=== PATIENT | male | born 1950 | race Caucasian/White ===

== ENCOUNTER 2020-06-30 22:30 | Inpatient (IN) ==
[2020-06-30 23:01] LABS: Hemoglobin 11.4 gm/dL (13.5-18.0); Mean Cell Volume 97.6 fl (78-100); Mean Corpuscular Hemoglobin 30.1 pg (27-31); Mean Corpuscular Hgb Conc 30.8 g/dl (32-36); Mean Platelet Volume 9.8 fl (8-11.3); Neutrophil # 16.5 K/mm3 (1.3-6.0); Neutrophil % 88.2 % (42-75.0); Platelet Count 199 K/mm3 (150-450); Red Blood Count 3.79 M/mm3 (4.7-6.0); White Blood Count 18.7 K/mm3 (4.0-10.5)
[2020-06-30 23:07] LABS: Prothrombin Time (Patient) 12.6 Seconds (9.1-10.7)
[2020-06-30 23:09] LABS: INR 1.29 INR (0.92-1.08); Partial Thrombolplastin Time 29.5 Seconds (24-32)
[2020-06-30 23:13] LABS: Albumin * 2.9 gm/dl (3.4-5.0); Bilirubin, Total 0.6 mg/dL (0.0-1.1); Calcium * 9.4 mg/dL (7.9-10.9); Carbon Dioxide 25.1 mmol/L (24-32.6); Potassium 5.1 mmol/L (3.4-4.6); Total Protein 7.8 gm/dL (6.2-8.2)
[2020-06-30 23:14] LABS: Troponin I 0.035 ng/mL (0.00-0.10)
--- NOTE | 2020-06-30 23:37 | ERNOTE ---
Dyspnea - General Presenting Symptoms: other - low grade fever Time Seen by Provider: 06/30/20 23:11 Source: patient, family - Immun/Allergies/Home Medications Immunizations: IMMUNIZATION HX Immunizations Up to Date Yes History of Influenza Vaccine Yes Hx Pneumococcal Vaccination Yes Allergies/Adverse Reactions: Allergies No Known Allergies Allergy (Verified 07/01/12 13:17) Home Medications: HOME MEDICATIONS Insulin Aspart Prot/Insuln Asp [Novolog Mix 70/30] 15 - 20 units SC TID 07/01/12 [Last Taken Unknown] Insulin Glargine,Hum.rec.anlog [Lantus] 60 unit SQ BID 07/01/12 [Last Taken Unknown] Apixaban [Eliquis] 5 mg PO DAILY 04/26/17 [Last Taken Unknown] Carvedilol [Coreg] 12.5 mg PO BID 04/26/17 [Last Taken Unknown] Furosemide [Lasix] 20 mg PO DAILY 04/26/17 [Last Taken Unknown] Acetaminophen [Tylenol] 650 mg PO PRN 06/30/20 [Last Taken Unknown] Allopurinol [Zyloprim] 300 mg PO DAILY 06/30/20 [Last Taken Unknown] Clopidogrel Bisulfate [Plavix] 75 mg PO DAILY 06/30/20 [Last Taken Unknown] Colchicine 0.6 mg PO PRN PRN 06/30/20 [Last Taken Unknown] Dulaglutide [Trulicity] 1.5 mg SQ Q7D 06/30/20 [Last Taken Unknown] Gabapentin 100 mg PO TID 06/30/20 [Last Taken Unknown] Oxybutynin Chloride [Ditropan] 5 mg PO TID 06/30/20 [Last Taken Unknown] Rosuvastatin Calcium 40 mg PO DAILY 06/30/20 [Last Taken Unknown] Valsartan 80 mg PO DAILY 06/30/20 [Last Taken Unknown] traMADol HCL [Tramadol HCl] 25 mg PO Q6H 06/30/20 [Last Taken Unknown] - History of Present Illness Narrative: history obtained from . pt with mild elevation of blood sugar, low grade temp today so she brought him in to get checked out. pt typically with sob and as pulmonary fibrosis and is on oxygen at home. on arrival pt had low o2 but nwo at 100% on baseline o2 supplementation. per pt does not have much contact aside form the nurse that comes in. he has poor circulation and all of his care is managed at the [facility] Severity: mild Treatment DRESSAGE INSTRUCTOR: none Initiating event: Reports: unknown Review of Systems - Review of Systems Constitutional: Present: See HPI Respiratory: Present: shortness of breath, wheezing Cardiology: Present: edema Gastrointestinal/Abdominal: Absent: nausea, vomiting, abdominal pain Musculoskeletal: Present: See HPI Skin: Present: other - PVD Neurological: Present: other - mild dementia Endocrine: Present: See HPI All Other Systems: All systems neg except as marked Medical History (Last Reviewed 06/30/20 @ 23:35 by Shefali Burrell MD) Atrial fibrillation History of CVA (cerebrovascular accident) Hx of cardiac pacemaker Hx of diabetes mellitus Hx of gout Hx of hiatal hernia Venous insufficiency of both lower extremities Surgical History: Surgical History (Last Reviewed 06/30/20 @ 23:35 by Shefali Burrell MD) Hx of arthroscopy of knee Hx of heart artery stent Hx of hernia repair Family History: Family History (Last Reviewed 06/30/20 @ 23:35 by Shefali Burrell MD) Other No pertinent family history Social History: (Last Reviewed 06/30/20 @ 23:35 by Shefali Burrell MD) Tobacco: Smoking Status: Former smoker how long ago did patient quit smokin Alcohol: alcohol intake: never Substance Use: substance use type: does not use Personal Safety: do you feel safe at home: Yes victim of physical abuse: No victim of emotional abuse: No victim of sexual abuse: No would you like helpful sources: No Physical Exam - Physical Exam General Appearance: Present: alert, mild distress Head Exam: Present: normal inspection, no evidence of injury Eye Exam: Normal inspection: bilateral Ears, Nose, Throat: Present: normal ENT inspection Neck: Present: normal inspection, nontender, supple, full range of motion Respiratory: Present: decreased breath sounds, other - mild accessory muscle use. pt speaking in full sentences per this is normal Cardiovascular/Chest: Present: regular rate, rhythm Gastrointestinal/Abdominal: Present: nontender, soft Extremity Exam: Present: other - pt with medicated bandaging follow by vascular surgery at the [facility], wheeping wounds. Absent: no edema Neurological Exam: Present: alert, oriented, normal mood/affect Skin Exam: Present: other - pvd and wheeping legs again normal per Progress - Date and Time Seen: Date and Time: 07/01/20 03:46 case yael GONZALE[facility] there are no beds available and they will approve admission to nearest facility which is . case yael cavanaugh who accepted the pt and requested rocephin, azithromycin with blood cultures now and cbc cmp in the morning - Vital Signs Vital Signs: Vital Signs 06/30/20 22:36 06/30/20 23:11 Temperature 39.1 C H Pulse Rate 76 72 Respiratory Rate 17 15 Blood Pressure 100/42 149/57 O2 Sat by Pulse Oximetry 100 - EKG EKG #1 EKG: NSR, nonspecific ST T wave changes, other - rate 70 EKG read: Interp. by me - X-Ray X-Ray #1 X-Ray: chest - Progress/Reassessment Chief Complaint: Dyspnea Progress:: Unchanged Progress Note-Subjective: 07/01/20 03:49 per pt is typically sob adn requires oxygen. pt has pulmonary fibrosis also being followed by a surgeon for his legs. i yael GONZALEZ and there are no beds yael cavanaugh. pt with pulm fibrosis midl sob on o2, with luekocytosis and low grade temp. covid neg and pt with bandar. will hydrate, abx blood culture and repeat cb, cmp in the morning Plan - Plan Plan: yael cavanaugh will admit for bandar, leukocytosis and fever. Departure Clinical Impression: BANDAR (acute kidney injury) Fever Qualifiers: Fever type: due to other condition Qualified Code(s): R50.81 - Fever presenting with conditions classified elsewhere Leukocytosis Qualifiers: Leukocytosis type: unspecified Qualified Code(s): D72.829 - Elevated white blood cell count, unspecified - Departure Disposition: Short Term Hospital Inpatient Condition: Good Referrals: Abdulaziz Peña MD [Primary Care Provider] -
[2020-06-30] MEDS ORDERED: NORMAL SALINE 1,000 ML IV ONE (23:50)
[2020-07-01] MEDS ORDERED: ACETAMINOPHEN 1,000 MG/100 ML BTL IV ONE (00:21)
[2020-07-01 01:44] LABS: Urine Bilirubin Negative (NEGATIVE); Urine Blood 25 /ul (NEGATIVE); Urine Ketone Negative (NEGATIVE); Urine Nitrite Negative (NEGATIVE); Urine Protein 100 mg/dL (NEGATIVE); Urine Specific Gravity 1.025 SP.GR. (1.005-1.030); Urine Urobilinogen Normal (NORMAL)
[2020-07-01 01:55] LABS: Urine Appearance Clear (CLEAR); Urine Color Dark Yellow
[2020-07-01 01:56] LABS: Urine Amorphous Sediment Few - 1+ (NONE-FEW); Urine Bacteria TRACE; Urine RBC 0-5 /hpf (0-5); Urine WBC 0-5 /hpf (0-5)
[2020-07-01] MEDS ORDERED: cefTRIAXone SODIUM 2,000 MG/100 ML BAG IV ONE (03:59)
[2020-07-01] MEDS ORDERED: AZITHROMYCIN 250 MG TABLET PO ONE (03:59)
[2020-07-01 06:49] LABS: Hematocrit 33.6 % (42.0-52.0); Hemoglobin 10.6 gm/dL (13.5-18.0); Mean Cell Volume 98.5 fl (78-100); Mean Corpuscular Hemoglobin 31.1 pg (27-31); Mean Corpuscular Hgb Conc 31.5 g/dl (32-36); Mean Platelet Volume 10.3 fl (8-11.3); Platelet Count 184 K/mm3 (150-450); Red Blood Count 3.41 M/mm3 (4.7-6.0); White Blood Count 21.5 K/mm3 (4.0-10.5)
[2020-07-01 06:57] LABS: Total Cells Counted 100
[2020-07-01 07:08] LABS: Albumin * 2.6 gm/dl (3.4-5.0); Anion Gap 17.4 mmol/L (6.8-13.8); BUN/Creatinine Ratio 24.8 (9.0-21.6); Bilirubin, Total 0.5 mg/dL (0.0-1.1); Ca. Corrected For Albumin 9.4 mg/dL (8.4-10.2); Calcium * 8.6 mg/dL (7.9-10.9); Carbon Dioxide 21.1 mmol/L (24-32.6); Potassium 4.5 mmol/L (3.4-4.6); Total Protein 7.4 gm/dL (6.2-8.2)
[2020-07-01 08:17] LABS: Atypical (Reactive) Lymph 1 % (0-2); Band 11 % (0-2.0); Immature Granulocyte 2 (0-1); Lymphocyte 5 % (20-51); Monocyte 6 % (0-9); Neutrophil 75 % (42-75); Neutrophil # 16.1 K/mm3 (1.3-6.0)
[2020-07-01 08:21] LABS: Macrocytosis Trace; Platelet Estimate Normal (NORMAL)
[2020-07-01] MEDS ORDERED: ALLOPURINOL 300 MG TABLET PO SCH (10:45)
[2020-07-01] MEDS ORDERED: NON-FORMULARY 1 DOSE DOSE (Acetaminophen 650 MG) PO SCH (10:45)
[2020-07-01] MEDS ORDERED: APIXABAN 5 MG TABLET PO SCH (10:45)
[2020-07-01] MEDS ORDERED: CARVEDILOL 12.5 MG TABLET PO SCH (10:45)
[2020-07-01] MEDS ORDERED: CLOPIDOGREL BISULFATE 75 MG TABLET PO SCH (10:45)
[2020-07-01] MEDS ORDERED: INSULIN GLARGINE,HUM.REC.ANLOG 100 UNITS/ML VIAL SC SCH (10:45)
[2020-07-01] MEDS: traMADol HCL 50 MG TABLET PO SCH ×2 (11:27→16:14)
[2020-07-01] MEDS ORDERED: INSULIN ASPART PROT/INSULN ASP 100 UNITS/ML VIAL SC SCH (13:00)
--- NOTE | 2020-07-01 14:29 | HP ---
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 In the emergency department he was found to have a temperature of 39.1 C, rest of vitals were stable. Blood work showed leukocytosis of 18.7 with 88% neutrophils and 1.2% immature granulocytes, potassium of 5.1, BUN 74, creatinine 2.39, GFR of 29, lactic acid 2.2, chest x-ray showed mild pulmonary vascular congestion, nonspecific mild interstitial prominence which may represent interstitial pulmonary edema or interstitial infection. He was started on azithromycin and ceftriaxone. Medical History (Last Reviewed 07/01/20 @ 04:59 by Rachana Krueger RN) Atrial fibrillation History of CVA (cerebrovascular accident) Hx of cardiac pacemaker Hx of diabetes mellitus Hx of gout Hx of hiatal hernia Venous insufficiency of both lower extremities Surgical History: Surgical History (Last Reviewed 07/01/20 @ 04:59 by Rachana Krueger RN) Hx of arthroscopy of knee Hx of heart artery stent Hx of hernia repair Family History: Family History (Last Reviewed 07/01/20 @ 04:59 by Rachana Krueger RN) Other No pertinent family history Social History: (Last Reviewed 07/01/20 @ 04:59 by Rachana Krueger RN) Tobacco: Smoking Status: Former smoker how long ago did patient quit smokin Alcohol: alcohol intake: never Substance Use: substance use type: does not use Personal Safety: do you feel safe at home: Yes victim of physical abuse: No victim of emotional abuse: No victim of sexual abuse: No would you like helpful sources: No Review Of Systems (GEN) - Review of Systems Generalized/Overall Review: Present: Fever Respiratory: Present: Cough, Shortness of Breath Cardiac: Absent: Chest Pain Abdominal: Absent: Abdominal Pain Misc: All systems neg except as marked Immunizations: IMMUNIZATION HX Immunizations Up to Date Yes History of Influenza Vaccine Yes Hx Pneumococcal Vaccination Yes Allergies/Adverse Reactions: Allergies Allergy/AdvReac Type Severity Reaction Status Date / Time No Known Allergies Allergy Verified 07/01/12 13:17 Home Medications: HOME MEDICATIONS Insulin Aspart Prot/Insuln Asp [Novolog Mix 70/30] 15 - 20 units SC TID 07/01/12 [Last Taken Unknown] Insulin Glargine,Hum.rec.anlog [Lantus] 60 unit SQ BID 07/01/12 [Last Taken Unknown] Apixaban [Eliquis] 5 mg PO DAILY 04/26/17 [Last Taken Unknown] Carvedilol [Coreg] 12.5 mg PO BID 04/26/17 [Last Taken Unknown] Furosemide [Lasix] 20 mg PO DAILY 04/26/17 [Last Taken Unknown] Acetaminophen [Tylenol] 650 mg PO PRN 06/30/20 [Last Taken Unknown] Allopurinol [Zyloprim] 300 mg PO DAILY 06/30/20 [Last Taken Unknown] Clopidogrel Bisulfate [Plavix] 75 mg PO DAILY 06/30/20 [Last Taken Unknown] Colchicine 0.6 mg PO PRN PRN 06/30/20 [Last Taken Unknown] Dulaglutide [Trulicity] 1.5 mg SQ Q7D 06/30/20 [Last Taken Unknown] Gabapentin 100 mg PO TID 06/30/20 [Last Taken Unknown] Oxybutynin Chloride [Ditropan] 5 mg PO TID 06/30/20 [Last Taken Unknown] Rosuvastatin Calcium 40 mg PO DAILY 06/30/20 [Last Taken Unknown] Valsartan 80 mg PO DAILY 06/30/20 [Last Taken Unknown] traMADol HCL [Tramadol HCl] 25 mg PO Q6H 06/30/20 [Last Taken Unknown] Cholecacip 50 mg PO DAILY 07/01/20 [Last Taken Unknown] Exam - Exam Vital Signs: Vital Signs - Last Taken Temp 37 C 07/01/20 10:00 Pulse 71 07/01/20 13:14 Resp 27 H 07/01/20 13:14 BP 112/51 07/01/20 13:14 Pulse Ox 99 07/01/20 13:14 Constitutional: Present: Alert, Cooperative, Well nourished, Morbidly obese ENT Exam: Present: hearing grossly normal, dry mucous membranes Eye Exam: bilateral eye: normal inspection, EOMI Neck: Present: non-tender, supple. Absent: lymphadenopathy (R), lymphadenopathy (L) Back Exam: Present: no CVA tenderness, no vertebral tenderness Respiratory: Present: no respiratory distress, no accessory muscle use, decreased breath sounds - Throughout all lung campos, No wheezing. Absent: crackles, rhonchi Cardiovascular/Chest: Present: normal peripheral pulses, regular rate, rhythm, no murmur, edema - 2+ pitting edema bilateral lower extremities Peripheral Pulses: dorsalis-pedis (R): 1+, dorsalis-pedis (L): 1+ Abdomen: Present: Normal bowel sounds, soft, nontender, obese Extremity: Present: non-tender, pedal edema - 2+ pitting edema bilateral lower extremities Skin Exam: Present: normal color, warm/dry Neurologic: Present: alert, normal mood/affect Appearance: Present: appropriate appearance Eye contact: Present: cooperative Thoughts: Present: normal mood /affect Diagnostic Studies: Abnormal Lab Results 06/30/20 06/30/20 06/30/20 Range/Units 22:50 22:50 22:50 WBC 18.7 H (4.0-10.5) K/mm3 RBC 3.79 L (4.7-6.0) M/mm3 Hgb 11.4 L (13.5-18.0) gm/dL Hct 37.0 L (42.0-52.0) % MCH (27-31) pg MCHC 30.8 L (32-36) g/dl RDW 16.0 H (11.5-14.0) % Immature Gran % (Auto) 1.20 H (0.001-0.429) % Immature Gran # (Auto) 0.22 H (0.000-0.0310) K/mm3 Neutrophils % 88.2 H (42-75.0) % Band Neuts % (Manual) (0-2.0) % Lymphocytes % 3.1 L (20-51) % Lymphocytes % (Manual) (20-51) % Immature Granulocytes (0-1) Neutrophils # 16.5 H (1.3-6.0) K/mm3 Neutrophils # (Manual) (1.3-6.0) K/mm3 Lymphocytes # 0.57 L (1.5-3.5) k/mm3 Lymphocytes # (Manual) (1.5-3.5) k/mm3 Monocytes # 1.4 H (0.0-1.0) k/mm3 Monocytes # (Manual) (0.0-1.0) k/mm3 PT 12.6 H (9.1-10.7) Seconds INR (Anticoag Therapy) 1.29 H (0.92-1.08) INR Potassium 5.1 H (3.4-4.6) mmol/L Carbon Dioxide (24-32.6) mmol/L Anion Gap 14.0 H (6.8-13.8) mmol/L BUN 74 H (6-23) mg/dL Creatinine 2.39 H (0.4-1.4) mg/dL Est GFR (Non-Af Amer) 29 L D (60-130) mL/min BUN/Creatinine Ratio 31.0 H (9.0-21.6) Random Glucose 315 H (70-110) mg/dL Lactic Acid, Venous (0.4-2.0) mmol/L ALT 18 L (19-67) U/L Albumin 2.9 L (3.4-5.0) gm/dl Urine Protein (NEGATIVE) mg/dL Urine Blood (NEGATIVE) /ul Prot Sulfosalicylic Acd (0) mg/dL Ur Epithelial Cells (0-5) /hpf 06/30/20 07/01/20 07/01/20 Range/Units 22:50 00:53 06:03 WBC 21.5 H (4.0-10.5) K/mm3 RBC 3.41 L (4.7-6.0) M/mm3 Hgb 10.6 L (13.5-18.0) gm/dL Hct 33.6 L (42.0-52.0) % MCH 31.1 H (27-31) pg MCHC 31.5 L (32-36) g/dl RDW 16.0 H (11.5-14.0) % Immature Gran % (Auto) (0.001-0.429) % Immature Gran # (Auto) (0.000-0.0310) K/mm3 Neutrophils % (42-75.0) % Band Neuts % (Manual) 11 H (0-2.0) % Lymphocytes % (20-51) % Lymphocytes % (Manual) 5 L (20-51) % Immature Granulocytes 2 H (0-1) Neutrophils # (1.3-6.0) K/mm3 Neutrophils # (Manual) 16.1 H (1.3-6.0) K/mm3 Lymphocytes # (1.5-3.5) k/mm3 Lymphocytes # (Manual) 1.1 L (1.5-3.5) k/mm3 Monocytes # (0.0-1.0) k/mm3 Monocytes # (Manual) 1.3 H (0.0-1.0) k/mm3 PT (9.1-10.7) Seconds INR (Anticoag Therapy) (0.92-1.08) INR Potassium (3.4-4.6) mmol/L Carbon Dioxide (24-32.6) mmol/L Anion Gap (6.8-13.8) mmol/L BUN (6-23) mg/dL Creatinine (0.4-1.4) mg/dL Est GFR (Non-Af Amer) (60-130) mL/min BUN/Creatinine Ratio (9.0-21.6) Random Glucose (70-110) mg/dL Lactic Acid, Venous 2.2 H* (0.4-2.0) mmol/L ALT (19-67) U/L Albumin (3.4-5.0) gm/dl Urine Protein 100 H (NEGATIVE) mg/dL Urine Blood 25 H (NEGATIVE) /ul Prot Sulfosalicylic Acd 4+ H (0) mg/dL Ur Epithelial Cells 5-10 H (0-5) /hpf 07/01/20 Range/Units 06:03 WBC (4.0-10.5) K/mm3 RBC (4.7-6.0) M/mm3 Hgb (13.5-18.0) gm/dL Hct (42.0-52.0) % MCH (27-31) pg MCHC (32-36) g/dl RDW (11.5-14.0) % Immature Gran % (Auto) (0.001-0.429) % Immature Gran # (Auto) (0.000-0.0310) K/mm3 Neutrophils % (42-75.0) % Band Neuts % (Manual) (0-2.0) % Lymphocytes % (20-51) % Lymphocytes % (Manual) (20-51) % Immature Granulocytes (0-1) Neutrophils # (1.3-6.0) K/mm3 Neutrophils # (Manual) (1.3-6.0) K/mm3 Lymphocytes # (1.5-3.5) k/mm3 Lymphocytes # (Manual) (1.5-3.5) k/mm3 Monocytes # (0.0-1.0) k/mm3 Monocytes # (Manual) (0.0-1.0) k/mm3 PT (9.1-10.7) Seconds INR (Anticoag Therapy) (0.92-1.08) INR Potassium (3.4-4.6) mmol/L Carbon Dioxide 21.1 L (24-32.6) mmol/L Anion Gap 17.4 H (6.8-13.8) mmol/L BUN 73 H (6-23) mg/dL Creatinine 2.94 H D (0.4-1.4) mg/dL Est GFR (Non-Af Amer) 22 L D (60-130) mL/min BUN/Creatinine Ratio 24.8 H (9.0-21.6) Random Glucose 386 H (70-110) mg/dL Lactic Acid, Venous (0.4-2.0) mmol/L ALT 17 L (19-67) U/L Albumin 2.6 L (3.4-5.0) gm/dl Urine Protein (NEGATIVE) mg/dL Urine Blood (NEGATIVE) /ul Prot Sulfosalicylic Acd (0) mg/dL Ur Epithelial Cells (0-5) /hpf Laboratory Results WBC 21.5 K/mm3 (4.0-10.5) H 07/01/20 06:03 RBC 3.41 M/mm3 (4.7-6.0) L 07/01/20 06:03 Hgb 10.6 gm/dL (13.5-18.0) L 07/01/20 06:03 Hct 33.6 % (42.0-52.0) L 07/01/20 06:03 MCV 98.5 fl (78-100) 07/01/20 06:03 MCH 31.1 pg (27-31) H 07/01/20 06:03 MCHC 31.5 g/dl (32-36) L 07/01/20 06:03 RDW 16.0 % (11.5-14.0) H 07/01/20 06:03 Plt Count 184 K/mm3 (150-450) 07/01/20 06:03 MPV 10.3 fl (8-11.3) 07/01/20 06:03 Immature Gran % (Auto) 1.20 % (0.001-0.429) H 06/30/20 22:50 Immature Gran # (Auto) 0.22 K/mm3 (0.000-0.0310) H 06/30/20 22:50 Neutrophils % 88.2 % (42-75.0) H 06/30/20 22:50 Neutrophils % (Manual) 75 % (42-75) 07/01/20 06:03 Band Neuts % (Manual) 11 % (0-2.0) H 07/01/20 06:03 Lymphocytes % 3.1 % (20-51) L 06/30/20 22:50 Lymphocytes % (Manual) 5 % (20-51) L 07/01/20 06:03 Monocytes % 7.2 % (0.0-9) 06/30/20 22:50 Monocytes % (Manual) 6 % (0-9) 07/01/20 06:03 Eosinophils % 0.1 % (0.0-3.0) 06/30/20 22:50 Basophils % 0.2 % (0.0-1.0) 06/30/20 22:50 Nucleated RBC % 0.0 k/mm3 (0-1) 06/30/20 22:50 Immature Granulocytes 2 (0-1) H 07/01/20 06:03 Neutrophils # 16.5 K/mm3 (1.3-6.0) H 06/30/20 22:50 Neutrophils # (Manual) 16.1 K/mm3 (1.3-6.0) H 07/01/20 06:03 Lymphocytes # 0.57 k/mm3 (1.5-3.5) L 06/30/20 22:50 Lymphocytes # (Manual) 1.1 k/mm3 (1.5-3.5) L 07/01/20 06:03 Monocytes # 1.4 k/mm3 (0.0-1.0) H 06/30/20 22:50 Monocytes # (Manual) 1.3 k/mm3 (0.0-1.0) H 07/01/20 06:03 Eosinophils # 0.0 k/mm3 (0.0-0.7) 06/30/20 22:50 Absolute Basophils 0.0 k/mm3 (0.0-0.1) 06/30/20 22:50 Atypic/Reactive Lymphs 1 % (0-2) 07/01/20 06:03 Platelet Estimate Normal (NORMAL) 07/01/20 06:03 Macrocytosis Trace 07/01/20 06:03 PT 12.6 Seconds (9.1-10.7) H 06/30/20 22:50 INR (Anticoag Therapy) 1.29 INR (0.92-1.08) H 06/30/20 22:50 PTT (Lexie) 29.5 Seconds (24-32) 06/30/20 22:50 Sodium 135 mmol/L (132-142) 07/01/20 06:03 Plasma Sodium 140 mmol/L (130-142) 07/01/20 06:03 Potassium 4.5 mmol/L (3.4-4.6) 07/01/20 06:03 Chloride 101 mmol/L (97-106) 07/01/20 06:03 Carbon Dioxide 21.1 mmol/L (24-32.6) L 07/01/20 06:03 Anion Gap 17.4 mmol/L (6.8-13.8) H 07/01/20 06:03 BUN 73 mg/dL (6-23) H 07/01/20 06:03 Creatinine 2.94 mg/dL (0.4-1.4) H D 07/01/20 06:03 Est GFR (Non-Af Amer) 22 mL/min (60-130) L D 07/01/20 06:03 BUN/Creatinine Ratio 24.8 (9.0-21.6) H 07/01/20 06:03 Random Glucose 386 mg/dL (70-110) H 07/01/20 06:03 Lactic Acid, Venous 1.3 mmol/L (0.4-2.0) 07/01/20 02:30 Calcium 8.6 mg/dL (7.9-10.9) 07/01/20 06:03 Calcium Adj for Albumin 9.4 mg/dL (8.4-10.2) 07/01/20 06:03 Total Bilirubin 0.5 mg/dL (0.0-1.1) 07/01/20 06:03 AST 9 U/L (0-48) 07/01/20 06:03 ALT 17 U/L (19-67) L 07/01/20 06:03 Alkaline Phosphatase 79 U/L (50-170) 07/01/20 06:03 Troponin I 0.035 ng/mL (0.00-0.10) 06/30/20 22:50 Total Protein 7.4 gm/dL (6.2-8.2) 07/01/20 06:03 Albumin 2.6 gm/dl (3.4-5.0) L 07/01/20 06:03 Urine Color Dark yellow 07/01/20 00:53 Urine Appearance Clear (CLEAR) 07/01/20 00:53 Urine pH 5.0 pH (5.0-7.0) 07/01/20 00:53 Ur Specific [place] 1.025 SP.GR. (1.005-1.030) 07/01/20 00:53 Urine Protein 100 mg/dL (NEGATIVE) H 07/01/20 00:53 Urine Glucose (UA) Negative mg/dL (NEGATIVE) 07/01/20 00:53 Urine Ketones Negative mg/dL (NEGATIVE) 07/01/20 00:53 Urine Blood 25 /ul (NEGATIVE) H 07/01/20 00:53 Urine Nitrate Negative (NEGATIVE) 07/01/20 00:53 Urine Bilirubin Negative mg/dl (NEGATIVE) 07/01/20 00:53 Prot Sulfosalicylic Acd 4+ mg/dL (0) H 07/01/20 00:53 Urine Urobilinogen Normal EU/dl (NORMAL) 07/01/20 00:53 Ur Leukocyte Esterase Negative /ul (NEGATIVE) 07/01/20 00:53 Urine RBC 0-5 /hpf (0-5) 07/01/20 00:53 Urine WBC 0-5 /hpf (0-5) 07/01/20 00:53 Ur Epithelial Cells 5-10 /hpf (0-5) H 07/01/20 00:53 Amorphous Sediment Few - 1+ (NONE-FEW) 07/01/20 00:53 Urine Bacteria Trace (NONE) 07/01/20 00:53 Urine Culture Comments No culture indicated 07/01/20 00:53 SARS-CoV-2 (PCR) Not detected (NotDetected) 07/01/20 01:15 Assessment/Plan - Narrative Narrative: 70-year-old male with a past medical history of CKD 3, atrial fibrillation, diabetes mellitus type 2, gout, CVA, obstructive sleep apnea but noncompliant with his CPAP CAD, status post pacemaker and defibrillator, venous insufficiency of bilateral lower extremities, 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 In the emergency department he was found to have a temperature of 39.1 C, rest of vitals were stable. Blood work showed leukocytosis of 18.7 with 88% neutrophils and 1.2% immature granulocytes, potassium of 5.1, BUN 74, creatinine 2.39, GFR of 29, lactic acid 2.2, chest x-ray showed mild pulmonary vascular congestion, nonspecific mild interstitial prominence which may represent interstitial pulmonary edema or interstitial infection. He was started on azithromycin and ceftriaxone. This morning repeat blood work showed improvement of the lactic acid to 1.3, creatinine to 2.94, BUN 24.8, GFR of 22. He has made over 1000 cc of urine today. I consulted with a transformer maker at [facility] and he recommended that I obtain an ultrasound of his kidneys, strict I's and O's. The transformer maker would like the patient transferred to higher level of care so he can be directly evaluated by a transformer maker. Unfortunately the bed situation in [place] is very tight and there are no openings at [facility], the [place] or [place]. I will continue to monitor the patient and hold nephrotoxic medication such as gabapentin, valsartan, colchicine and Lasix. Plan #1 continue holding nephrotoxic agents such as gabapentin, Lasix, valsartan and colchicine. #2 obtain a kidney ultrasound #3 strict I's and O's #4 obtain an ABG to assess for CO2 retention due to his altered mentation and noncompliance with his CPAP #4 oxygen supplementation as needed, goal O2 is greater than 90% #5 resume the rest of his home medications #6 CBC and CMP in the morning #7 continue attempting to transfer the patient to a higher level of care where he can be evaluated by a transformer maker and a belt conveyor drier - Assessment/Plan (1) BANDAR (acute kidney injury) Problem: Acute (2) Leukocytosis Problem: Acute Qualifiers: Leukocytosis type: unspecified Qualified Code(s): D72.829 - Elevated white blood cell count, unspecified (3) Fever Problem: Acute Qualifiers: Fever type: due to other condition Qualified Code(s): R50.81 - Fever presenting with conditions classified elsewhere (4) Chronic obstructive lung disease Problem: Acute (5) CAD (coronary artery disease) Problem: Acute (6) Gout Problem: Acute (7) Heart failure with reduced ejection fraction Problem: Acute (8) Dyspnea Problem: Acute (9) Obstructive sleep apnea on CPAP Problem: Acute (10) Supplemental oxygen dependent Problem: Acute
[2020-07-01 14:35] VITALS: BP 126/53
[2020-07-01] MEDS ORDERED: ACETAMINOPHEN 500 MG TABLET PO PRN (15:37)
[2020-07-01] MEDS ORDERED: LIDOCAINE HCL 20 ML VIAL ONE (17:00)
[2020-07-01] MEDS ORDERED: INSULIN LISPRO 100 UNITS/ML VIAL SC SCH (17:00)
[2020-07-02] MEDS ORDERED: ROSUVASTATIN CALCIUM 20 MG TABLET PO SCH (09:00)
[2020-07-02] MEDS ORDERED: AZITHROMYCIN 250 MG TABLET PO SCH (09:00)
--- NOTE | 2020-07-02 14:26 | DS ---
(1) BANDAR (acute kidney injury) Problem: Acute (2) Leukocytosis Problem: Acute Qualifiers: Leukocytosis type: unspecified Qualified Code(s): D72.829 - Elevated white blood cell count, unspecified (3) Fever Problem: Acute Qualifiers: Fever type: due to other condition Qualified Code(s): R50.81 - Fever presenting with conditions classified elsewhere (4) Chronic obstructive lung disease Problem: Chronic (5) CAD (coronary artery disease) Problem: Chronic (6) Gout Problem: Chronic (7) Heart failure with reduced ejection fraction Problem: Chronic (8) Dyspnea Problem: Acute (9) Obstructive sleep apnea on CPAP Problem: Chronic (10) Supplemental oxygen dependent Problem: Chronic Hospital Course: 70-year-old male with a past medical history of CKD 3, atrial fibrillation, diabetes mellitus type 2, gout, CVA, obstructive sleep apnea but noncompliant with his CPAP CAD, status post pacemaker and defibrillator, venous insufficiency of bilateral lower extremities, 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 In the emergency department he was found to have a temperature of 39.1 C, rest of vitals were stable. Blood work showed leukocytosis of 18.7 with 88% neutrophils and 1.2% immature granulocytes, potassium of 5.1, BUN 74, creatinine 2.39, GFR of 29, lactic acid 2.2, chest x-ray showed mild pulmonary vascular congestion, nonspecific mild interstitial prominence which may represent interstitial pulmonary edema or interstitial infection. He was started on azithromycin and ceftriaxone. This morning repeat blood work showed improvement of the lactic acid to 1.3, creatinine to 2.94, BUN 24.8, GFR of 22. He has made over 1000 cc of urine today. I consulted with a shearing machine tender at [facility] and he recommended that I obtain an ultrasound of his kidneys, strict I's and O's. The shearing machine tender would like the patient transferred to higher level of care so he can be directly evaluated by a shearing machine tender. Unfortunately the bed situation in [place] is very tight and there are no openings at [facility], the [place] or [place]. I will continue to monitor the patient and hold nephrotoxic medication such as gabapentin, valsartan, colchicine and Lasix. The patient decided to sign himself out on July 01, 2020 AGAINST MEDICAL ADVICE. Procedures Performed: none Results and Findings: [facility]:30 Blood Blood Culture - Preliminary NO GROWTH 24 HOURS 06/30/20 22:50 Blood Blood Culture - Preliminary NO GROWTH 24 HOURS Lab Pending Results 06/30/20 22:50: WBC 18.7 H, RBC 3.79 L, Hgb 11.4 L, Hct 37.0 L, MCV 97.6, MCH 30.1, MCHC 30.8 L, RDW 16.0 H, Plt Count 199, MPV 9.8, Immature Gran % (Auto) 1.20 H, Immature Gran # (Auto) 0.22 H, Neutrophils % 88.2 H, Lymphocytes % 3.1 L, Monocytes % 7.2, Eosinophils % 0.1, Basophils % 0.2, Nucleated RBC % 0.0, Neutrophils # 16.5 H, Lymphocytes # 0.57 L, Monocytes # 1.4 H, Eosinophils # 0.0, Absolute Basophils 0.0 06/30/20 22:50: Sodium 136, Plasma Sodium 139, Potassium 5.1 H, Chloride 102, Carbon Dioxide 25.1, Anion Gap 14.0 H, BUN 74 H, Creatinine 2.39 H, Est GFR (Non-Af Amer) 29 L D, BUN/Creatinine Ratio 31.0 H, Random Glucose 315 H, Calcium 9.4, Calcium Adj for Albumin 10.0, Total Bilirubin 0.6, AST 14, ALT 18 L, Alkaline Phosphatase 80, Troponin I 0.035, Total Protein 7.8, Albumin 2.9 L 06/30/20 22:50: PT 12.6 H, INR (Anticoag Therapy) 1.29 H, PTT ([place]) 29.5 06/30/20 22:50: Lactic Acid, Venous 2.2 H* 07/01/20 00:53: Urine Color Dark yellow, Urine Appearance Clear, Urine pH 5.0, Ur Specific [place] 1.025, Urine Protein 100 H, Urine Glucose (UA) Negative, Urine Ketones Negative, Urine Blood 25 H, Urine Nitrate Negative, Urine Bilirubin Negative, Prot Sulfosalicylic Acd 4+ H, Urine Urobilinogen Normal, Ur Leukocyte Esterase Negative, Urine RBC 0-5, Urine WBC 0-5, Ur Epithelial Cells 5-10 H, Amorphous Sediment Few - 1+, Urine Bacteria Trace, Urine Culture Comments No culture indicated 07/01/20 01:15: SARS-CoV-2 (PCR) Not detected 07/01/20 02:30: Lactic Acid, Venous 1.3 07/01/20 06:03: WBC 21.5 H, RBC 3.41 L, Hgb 10.6 L, Hct 33.6 L, MCV 98.5, MCH 31.1 H, MCHC 31.5 L, RDW 16.0 H, Plt Count 184, MPV 10.3, Neutrophils % (Manual) 75, Band Neuts % (Manual) 11 H, Lymphocytes % (Manual) 5 L, Monocytes % (Manual) 6, Immature Granulocytes 2 H, Neutrophils # (Manual) 16.1 H, Lymphocytes # (Manual) 1.1 L, Monocytes # (Manual) 1.3 H, Atypic/Reactive Lymphs 1, Platelet Estimate Normal, Macrocytosis Trace 07/01/20 06:03: Sodium 135, Plasma Sodium 140, Potassium 4.5, Chloride 101, Carbon Dioxide 21.1 L, Anion Gap 17.4 H, BUN 73 H, Creatinine 2.94 H D, Est GFR (Non-Af Amer) 22 L D, BUN/Creatinine Ratio 24.8 H, Random Glucose 386 H, Calcium 8.6, Calcium Adj for Albumin 9.4, Total Bilirubin 0.5, AST 9, ALT 17 L, Alkaline Phosphatase 79, Total Protein 7.4, Albumin 2.6 L 07/01/20 17:57: pCO2 31.2 L, pO2 99.8, HCO3 18.8 L, Total CO2 19.8, Base Excess -5.1 L, ABG pH 7.40, ABG O2 Sat (Measured) 97.6 Discharge Location: Home Disposition: Against medical advice Condition: Fair Discharge Activity: Activity as tolerated Discharge Diet: Low salt, Low fat/chol Referrals: Abdulaziz Peña MD [Primary Care Provider] - Additional Patient Instructions (free text): Mobile [facility] on going, please call and fax discharge information to them, Mobile Nurse is Patricia. Complete Home Medications List: Complete Home Medication List: Insulin Aspart Prot/Insuln Asp [Novolog Mix 70/30] 15 - 20 units SC TID 07/01/12 Insulin Glargine,Hum.rec.anlog [Lantus] 60 unit SQ BID 07/01/12 Apixaban [Eliquis] 5 mg PO DAILY 04/26/17 Carvedilol [Coreg] 12.5 mg PO BID 04/26/17 Furosemide [Lasix] 20 mg PO DAILY 04/26/17 Allopurinol [Zyloprim] 300 mg PO DAILY 06/30/20 Clopidogrel Bisulfate [Plavix] 75 mg PO DAILY 06/30/20 Colchicine 0.6 mg PO PRN PRN 06/30/20 Dulaglutide [Trulicity] 1.5 mg SQ Q7D 06/30/20 Gabapentin 100 mg PO TID 06/30/20 Oxybutynin Chloride [Ditropan] 5 mg PO TID 06/30/20 Rosuvastatin Calcium 40 mg PO DAILY 06/30/20 Valsartan 80 mg PO DAILY 06/30/20 traMADol HCL [Tramadol HCl] 25 mg PO Q6H 06/30/20 Acetaminophen 500 mg PO Q4H PRN 07/01/20 Cholecacip 50 mg PO DAILY 07/01/20
== END 2020-07-01 19:20 | disposition left against medical advice (07) | DRG 682 ==
LOC: MS 22:30 → ER 22:30 → MS 07-01 04:45
PROVIDERS: ADMIT Internal Medicine; ATTEND Internal Medicine